=== PATIENT | male | born 1965 | race Caucasian/White ===

== ENCOUNTER 2021-11-16 02:19 | Emergency (ER) | payer OTHER, BC ==
[2021-11-16] MEDS ORDERED: CEFAZOLIN 2 GM VIAL ONE (02:29)
[2021-11-16 02:50] LABS: #Basophils 0.1 thou/uL (0.0-0.2); #Eosinphils 0.2 thou/uL (0.0-0.7); #Lymphocytes 1.9 thou/uL (1.20-3.40); #Monocytes 0.4 thou/uL (0.11-0.59); #Neutrophils 6.2 thou/uL (1.40-6.50); %Basophils 0.8 % (0.0-1.0); %Eosinophils 2.5 % (0.0-10.0); %Lymphocytes 21.4 % (21.0-51.0); %Monocytes 4.6 % (0.0-10.0); %Neutrophils 70.6 % (42.0-75.0); Hemoglobin 15.1 g/dL (14.0-18.0); Mean Corpuscular Hemoglobin 31.2 pg (27.0-31.0); Mean Corpuscular Volume 94.4 fL (78.0-98.0); Mean Platelet Volume 7.4 fL (7.4-10.4); Platelet Count 257 thou/uL (130-400); RBC Distribution Width 12.1 % (11.5-14.5); Red Blood Cell (RBC) Count 4.84 mill/uL (4.70-6.10); White Blood Cell (WBC) Count 8.8 thou/uL (4.8-10.8)
[2021-11-16] MEDS ORDERED: Boostrix 0.5 ML (Tdap) VIAL (>/=7 yrs of age) ONE (02:59)
[2021-11-16 03:02] LABS: Acetaminophen Less than 10.0 mcg/mL (10.0-30.0); Alcohol 283 mg/dL (Less than 10); Salicylate Less than 8.0 mg/dL (15.0-30.0)
[2021-11-16 03:11] LABS: ALT (SGPT) 52 U/L (8-55); AST (SGOT) 44 U/L (5-34); Albumin 4.7 g/dL (3.5-5.0); Alkaline Phosphatase 90 U/L (40-110); Anion Gap 18 mmol/L (10-20); BUN (Urea Nitrogen) 11 mg/dL (8.4-25.7); Bilirubin, Total 0.3 mg/dL (0.2-1.2); Calc. Creatinine Clearance 0 mL/min (70-130); Calcium 9.1 mg/dL (7.8-10.44); Carbon Dioxide 21 mmol/L (22-29); Chloride 105 mmol/L (98-107); Estimated GFR 103; Globulin 3.5 g/dL (2.4-3.5); Glucose 111 mg/dL (70-105); Potassium 4.4 mmol/L (3.5-5.1); Protein, Total 8.2 g/dL (6.0-8.3); Sodium 140 mmol/L (136-145)
[2021-11-16] MEDS ORDERED: Iopamidol 370 76% 100 ML VIAL ONE (11:23)
== END 2021-11-16 05:02 | disposition short-term general hospital (02) ==
LOC: ERS 02:19
DX: S62.361A Nondisplaced fracture of neck of second metacarpal bone, left hand, initial encounter for closed fracture (principal); S62.341A Nondisplaced fracture of base of second metacarpal bone, left hand, initial encounter for closed fracture; S61.412A Laceration without foreign body of left hand, initial encounter; V69.9XXA Occupant (driver) (passenger) of heavy transport vehicle injured in unspecified traffic accident, initial encounter
CPT/HCPCS: 70450; 71045; 71260; 72125; 74177; 80053; 80307; 85025; 90471; 90715; 96374; G0390; J0690; Q9967